=== PATIENT | male | born 1990 | race Caucasian/White ===

== ENCOUNTER → 2017-04-13 | Outpatient (CLI) | payer BC ==
[~2017-04-13] MED LIST: HYDR480S10; HYDR480S10 PO
[2017-04-14 07:25] LABS: HIV AG AB SCREEN Non-Reactive (Non-Reactive)
== END ==
LOC: LAB 10:51
PROVIDERS: ATTEND Family Medicine
DX: Z72.52 High risk homosexual behavior (principal)
CPT/HCPCS: 36415; 80074; 86703

== ENCOUNTER 2017-04-27 05:36 | Outpatient (CLI) | payer BC ==
[~2017-04-27] VITALS: Ht 180.3 cm; Wt 104.3 kg
[2017-04-27] MEDS ORDERED: FLUT15OI2 TP (14:17)
[2017-04-27] MEDS ORDERED: FLUT16SP22 NS (14:17)
[2017-04-27] MEDS ORDERED: L.AC1CAP6 PO (14:17)
[2017-04-27] MEDS ORDERED: BUSP15TA60 PO (14:22)
[2017-04-29] MEDS ORDERED: PANT40TA2 PO (14:10)
== END 2017-04-27 14:26 ==
LOC: PREOP 05:36
PROVIDERS: ATTEND Surgery
DX: Z01.818 Encounter for other preprocedural examination (principal); K21.9 Gastro-esophageal reflux disease without esophagitis; Z87.19 Personal history of other diseases of the digestive system

== ENCOUNTER 2017-04-29 10:12 | Day surgery (SDC) | payer BC ==
[~2017-04-29] VITALS: Ht 180.3 cm; Wt 104.3 kg
[~2017-04-29 10:12] MED LIST changes: +BUSP15TA60 PO; +FLUT15OI2 TP; +FLUT16SP22 NS; +L.AC1CAP6 PO
[2017-04-29] MEDS ORDERED: NS IV 500 ML 500 ML ONE (10:28)
[2017-04-29 10:30] VITALS: BP 124/81
[2017-04-29] MEDS ORDERED: NS IV 500 ML 500 ML IV ONE (10:30)
[2017-04-29] MEDS ORDERED: LIDOCAINE JELLY 2% (XYLOCAINE) 5 ML TUBE MM PRN (10:30)
--- NOTE | 2017-04-29 12:17 | Conscious Sedation/ASA ---
Conscious Sedation Pre-Proced Time Reviewed: 12:00 ASA Class: 1 Airway Mallampati Classification: ([place] appropriate class) I. II. III, IV Lungs Heart ASA score ASA 1: a normal healthy patient ASA 2: a patient with a mild systemic disease (mid diabetes, controlled hypertension, obesity ASA 3: a patient with a severe systemic disease that limits activity (angina , COPD, prior Myocardial infarction) ASA 4: a patient with an incapacitating disease that is a constant threat to life (CHF, renal failure) ASA 5: a moribund patient not expected to survive 24 hrs. (ruptured aneurysm) ASA 6: a declared brain patient whose organs are being harvested. For emergent operations, add the letter E after the classification Grade 2 Sedation Plan: Analgesia, Amnesia, Plan communicated to team members, Discussed options with patient/fam, Discussed risks with patient/fam Note The patient is an appropriate candidate to undergo the planned procedure, sedation, and anesthesia. The patient immediately re-assessed prior to indication. GAGANDEEP MEYER MD Apr 29, 2017 12:17 pm
--- NOTE | 2017-04-29 12:18 | Progress Note-Pre Operative ---
Pre-Operative Progress Note H&P Reviewed The H&P was reviewed, patient examined and no changes noted. Date Seen by Provider: Apr 29, 2017 Time Seen by Provider: 12:00 Date H&P Reviewed: Apr 29, 2017 Time H&P Reviewed: 12:00 Pre-Operative Diagnosis: GAGANDEEP PAGE MD Apr 29, 2017 12:18 pm
[2017-04-29] MEDS ORDERED: ONDANSETRON 4 MG/2 ML (SDV) Z0FRAN IV PRN (12:30)
[2017-04-29] MEDS ORDERED: ACETAMINOPHEN 325 MG TABLET/CAPLET (TYLENOL) PO PRN (12:30)
[2017-04-29] MEDS ORDERED: HYDROcodone/APAP 5 MG/325 MG (LORTAB) TAB PO PRN (12:30)
[2017-04-29] MEDS ORDERED: morphine INJ 10 MG/ML 1ML (SYR OR VIAL) IV PRN (12:30)
[2017-04-29] MEDS ORDERED: HURRICAINE EXT TUBE (BENZOCAINE) ONE (13:13)
[2017-04-29] MEDS ORDERED: fentaNYL INJECTION 100 MCG/2 ML AMP ONE ×2 (13:13→13:29)
[2017-04-29] MEDS ORDERED: LIDOCAINE JELLY 2% (XYLOCAINE) 5 ML TUBE ONE (13:13)
[2017-04-29] MEDS ORDERED: MIDAZOLAM 2 MG/2 ML (VERSED) VIAL ONE ×4 (13:13)
[2017-04-29] MEDS ORDERED: HURRICAINE EXT TUBE (BENZOCAINE) XX PRN (13:25)
[2017-04-29] MEDS: fentaNYL INJECTION 100 MCG/2 ML AMP IVP PRN ×3 (13:30→13:38)
[2017-04-29] MEDS: MIDAZOLAM 2 MG/2 ML (VERSED) VIAL IVP PRN ×4 (13:32→13:40)
--- NOTE | 2017-04-29 14:09 | Progress Note-Post Operative ---
Post-Operative Progess Note Surgeon (s)/Blast Hole Driller (s) Surgeon GAGANDEEP MEYER MD Blast Hole Driller: none Pre-Operative Diagnosis GERD Post-Operative Diagnosis reflux esophagitis(class B), no HH, moderate gastritis. no signs oral or esophageal candidiasis. Procedure & Operative Findings Date of Procedure 04/29/17 Procedure Performed/Findings EGD with bx and brushings. Anesthesia Type CS Estimated Blood Loss Estimated blood loss (mL): minimal Specimens/Packing Specimens Removed GE jxn, antrum GAGANDEEP MEYER MD Apr 29, 2017 2:09 pm
[2017-04-29] MEDS ORDERED: PANT40TA2 PO (14:10)
--- NOTE | 2017-04-29 14:11 | Discharge Inst-Surgical ---
D/C Lap Instructions-KIDO New, Converted, or Re-Newed RX: RX on Chart Follow Up PRN Activity as tolerated High Fiber Diet 25g or more per day Avoid Alcohol, Caffeine, Spicy [place] and Acid foods. Drink 64 fluid oz or more of fluids per day. Symptoms to Report: Fever over 101 degree F, Nausea/Vomiting If any problems/questions: Contact your physician or go to Emergency Room GAGANDEEP MEYER MD Apr 29, 2017 2:11 pm
[2017-04-29 14:30] VITALS: BP 131/88
[2017-04-29 15:00] VITALS: BP 122/71
[2017-04-29 15:05] VITALS: BP 122/71
--- NOTE | 2017-04-30 13:26 | OPERATIVE REPORT ---
DATE OF SERVICE: 04/29/2017 ATTENDING PRIMARY CARE PHYSICIAN: Dr. Rio Feliciano. PREOPERATIVE DIAGNOSIS: Dysphagia, gastroesophageal reflux disease, history of oral thrush. POSTOPERATIVE DIAGNOSES: Reflux esophagitis class B, no signs of oral or esophageal candidiasis. No hiatal hernia. Moderate severity gastritis. PROCEDURE: EGD with biopsy and brushings. SURGEON: Dr. Meyer. ANESTHESIA: Conscious sedation. ESTIMATED BLOOD LOSS: Minimal. FINDINGS: No signs of oral or esophageal candidiasis. Reflux esophagitis class B. Moderate severity gastritis with no formal ulcers, polyps or any neoplasms. Pylorus and duodenum appeared normal with no distal obstructions. DISPOSITION: The patient tolerated the procedure well. INDICATIONS: The patient is a 26-year-old male who has had issues with reflux as well as difficulty swallowing. He reports that he became anxious due to potential issues with oral thrush. He reports that he potentially thought that he had acquired a sexually transmitted disease and received IV antibiotic or what sounds to be an intramuscular antibiotic and then felt difficulty swallowing in the back of the throat. Upon further questioning, he reports that he does also have symptoms of reflux and regurgitation with occasional episodes of epigastric burning sensation as well as crampy pain and the sensation of liquids and foods coming up at night. DESCRIPTION OF PROCEDURE: The patient was brought to the endoscopy suite, laid in the left lateral decubitus position. After adequate IV pain and sedating medications and conscious sedation anesthesia, the mouthpiece was applied. Endoscope was placed in the mouth, visualizing the pharynx and hypopharyngeal region. The vocal cords, epiglottis and vallecula identified and appeared to be normal. There was no white coating to indicate any sign of oral thrush. The endoscope was then gently intubated in the esophageal opening, esophagus insufflated. Endoscope was then advanced to the first, second and third portion of esophagus. At the level of the GE junction, again there was no white coating to indicate an esophageal candidiasis. Brushings were taken of this area and sent for culture and sensitivity. A biopsy was also taken of the gastroesophageal junction using forceps with visualization of good hemostasis. The endoscope was then easily advanced in the stomach. The endoscope retroflexed visualizing no hiatal hernia. A moderate severity gastritis was identified more towards the stomach antrum, most likely indicating some form of acid hypersecretion due to stress versus lifestyle. No ulcers, polyps or any neoplasms identified. A biopsy was taken with forceps with visualization of good hemostasis. The endoscope was then advanced to the pylorus and the first and second portions of the duodenum, which appeared normal with no distal obstructions. The endoscope was then slowly withdrawn taking a second look and suctioning residual air with no additional findings. The patient tolerated the procedure well. It does not appear that he has any endoscopic signs of oral or esophageal candidiasis; however, we will await the results of the brushings from the esophagus. We feel that his most likely cause of symptomatology is due to stress and induced gastritis and reflux associated with this. We will recommend the necessary lifestyle and diet accommodation including small and more frequent meals, avoidance of eating at night as well as head elevation while laying supine. He also needs to avoid caffeinated and alcoholic beverages as well as spicy, greasy and acidic foods as well as small and more frequent meals and avoidance of eating at night. We will also proceed with a trial of Protonix 40 mg daily for the next 3 months. Job ID: [id number] DocumentID: [id number] Dictated Date: 04/29/2017 14:08:56 Machine Tool Mechanic Date: 04/30/2017 13:25:39 Dictated By: GAGANDEEP MEYER MD
== END 2017-04-29 15:05 | disposition home or self-care (01) ==
LOC: ENDO 10:12
PROVIDERS: ATTEND Surgery
DX: K21.0 Gastro-esophageal reflux disease with esophagitis (principal); K29.60 Other gastritis without bleeding
CPT/HCPCS: 87101; 88305